=== PATIENT | male | born 1975 | race Caucasian/White ===

== ENCOUNTER → 2018-12-05 11:34 | Outpatient (CLI) | payer BC, SELFPAY ==
[2018-12-05 18:10] LABS: Urine N gonorrhoeae NOT DETECTED
[2018-12-05 18:12] LABS: Urine Chlamydia NOT DETECTED
== END ==
PROVIDERS: Visit Provider Physician Assistant
DX: Z11.3 Encounter for screening for infections with a predominantly sexual mode of transmission (principal)
CPT/HCPCS: 87491; 87591

== ENCOUNTER → 2018-12-05 11:54 | Outpatient (CLI) | payer BC, SELFPAY ==
[2018-12-05 17:19] LABS: HIV 1 & 2 Ab/Ag 4th Gen Combo NEGATIVE (NEGATIVE); Hep C Virus Ab w/Reflex Quant NEGATIVE s/c (NEGATIVE)
[2018-12-07 12:17] LABS: RPR Screen Nonreactive (Nonreactive)
[2018-12-08 15:22] LABS: HSV 1 IgM Screen Negative (Negative); HSV 2 IgM Screen Negative (Negative)
[2018-12-09 14:44] LABS: Hepatitis B Core Antibody Nonreactive (Nonreactive)
== END ==
PROVIDERS: PCP Physician Assistant; Visit Provider Physician Assistant
DX: N48.9 Disorder of penis, unspecified (principal); Z11.3 Encounter for screening for infections with a predominantly sexual mode of transmission
CPT/HCPCS: 36415; 86592; 86695; 86696; 86704; 86803; 87389; 87491; 87591